=== PATIENT | female | born 1965 | race Caucasian/White ===

== ENCOUNTER → 2016-11-10 | Outpatient (CLI) | payer OTHER ==
[~2016-11-10] MED LIST: LIDOCAINE 1% MDV 20ML VIAL As Ordered ONE
--- NOTE | 2016-11-10 13:38 | REP ---
Specimen radiography: Left breast. History: Patient status post stereotactic needle biopsy left breast for microcalcific cluster. Comparison mammography October 17, 2016. Findings: Specimen radiograph demonstrates three to four microcalcifications from the target grouping. Impression: Specimen radiography shows microcalcifications from the target grouping. Signed by Jeffery Patel MD 11/10/2016 03:34 P
--- NOTE | 2016-11-10 14:21 | REP ---
DIGITAL DIAGNOSTIC UNILATERAL LEFT BREAST MAMMOGRAPHY WITH CAD: HISTORY: Marker clip placement. The patient is status post needle biopsy for microcalcific grouping in the left breast medially. Comparison left breast mammography is from 10/17/2016. FINDINGS: Craniocaudal and true ML views of the left breast demonstrate that the marker clip is in good position relative to the targeted microcalcific grouping. The second grouping of microcalcifications seen on recent mammography was not targeted. This still needs to be biopsied. There is a small hematoma superior to the biopsy site in the medial left breast. IMPRESSION: Marker clip is seen in good position at the site of the biopsied microcalcific grouping. The second grouping of microcalcifications identified on recent mammography was not addressed today and still requires stereotactic needle biopsy. Signed by Jeffery Patel MD 11/10/2016 03:35 P
--- NOTE | 2016-11-10 15:24 | REP ---
STEREOTACTIC LEFT BREAST BIOPSY: The procedure was performed under the direct supervision of Dr. Patel. The patient has a history of two groupings of microcalcifications in the left breast seen on a previous mammogram from [facility] performed on 10/17/2016. There are two groups of calcifications one of which is more lateral and inferior. The other is more midline and superior. The calcifications in the more superior position were localized for biopsy. A craniocaudal approach was utilized. The calcifications were localized using stereotactic mammographic guidance. The skin was prepped and draped in a sterile fashion. 1% Xylocaine was used as a local anesthetic. An 8-gauge suction system Mammotome needle was inserted and six core biopsy samples were obtained. A marker clip was placed at the biopsy site. At the very end of the procedure, the patient did have a vasovagal reaction. The patient was aroused quite quickly using an ammonia capsule. The patient did have one episode of vomiting. The patient came around quite quickly. Because of the vasovagal reaction, the second set of calcifications were not able to be targeted for biopsy. After the appropriate amount of monitored convalescence, the patient was discharged from the department. Reviewed by DONALD Victor 11/10/2016 04:05 PEdited and Signed by Jeffery Patel MD 11/10/2016 04:24 P
== END ==
LOC: M RADPRO 10:45
PROVIDERS: ATTEND Surgery
DX: R92.0 Mammographic microcalcification found on diagnostic imaging of breast (principal); Z87.891 Personal history of nicotine dependence; Z79.899 Other long term (current) drug therapy

== ENCOUNTER → 2017-07-13 | Outpatient (CLI) | payer OTHER | LOC: M ONCR 08:50 | DX: C50.912 Malignant neoplasm of unspecified site of left female breast (principal) | CPT/HCPCS: G0463 ==

== ENCOUNTER 2017-07-25 13:37 | Outpatient (RCR) | payer OTHER | END 2017-08-12 | LOC: M ONCR 13:37 | DX: C50.512 Malignant neoplasm of lower-outer quadrant of left female breast (principal) | CPT/HCPCS: 77300 ==

== ENCOUNTER → 2017-07-25 | Outpatient (CLI) | payer OTHER ==
[2017-07-25 12:13] LABS: HEMATOCRIT 39.7 % (36.0-47.0); HEMOGLOBIN 13.1 g/dl (12.0-16.0); MEAN CORPUSCULAR HEMOGLOBIN 29.2 pg (27.0-33.0); MEAN CORPUSCULAR VOLUME 88.4 fl (80.0-96.0); PLATELET COUNT, AUTOMATED 291 10^3/uL (150-450); RED BLOOD COUNT 4.49 10^6/uL (4.00-5.40); RED CELL DISTRIBUTION WIDTH 12.1 % (11.5-14.5); WHITE BLOOD COUNT 6.4 10^3/uL (4.0-10.0)
== END ==
LOC: M RAD 11:07
DX: C50.912 Malignant neoplasm of unspecified site of left female breast (principal)
CPT/HCPCS: 85027

== ENCOUNTER 2017-08-14 10:23 | Outpatient (RCR) | payer OTHER | END 2017-09-11 | LOC: M ONCR 10:23 | DX: C50.512 Malignant neoplasm of lower-outer quadrant of left female breast (principal) | CPT/HCPCS: 77336 ==

== ENCOUNTER → 2017-09-20 | Outpatient (CLI) | payer OTHER | LOC: M ONCR 14:19 | DX: C50.512 Malignant neoplasm of lower-outer quadrant of left female breast (principal) | CPT/HCPCS: G0463 ==

== ENCOUNTER 2018-01-08 09:42 | Day surgery (SDC) | payer OTHER ==
[2018-01-08] MEDS: NS 1,000 ML IV (11:04)
[2018-01-08] MEDS ORDERED: LIDOCAINE 2% INJ 100 MG/5 ML SDV (FOR ANES.) As Ordered (12:00)
[2018-01-08] MEDS ORDERED: PROPOFOL 200 MG/20 ML VIAL As Ordered ×2 (12:00)
== END 2018-01-08 13:28 | disposition home or self-care (01) ==
LOC: M OPP 09:42
DX: Z12.11 Encounter for screening for malignant neoplasm of colon (principal); K64.0 First degree hemorrhoids; K62.1 Rectal polyp; K57.30 Diverticulosis of large intestine without perforation or abscess without bleeding; D12.6 Benign neoplasm of colon, unspecified; Z80.0 Family history of malignant neoplasm of digestive organs; M79.7 Fibromyalgia; Z79.899 Other long term (current) drug therapy; Z85.3 Personal history of malignant neoplasm of breast; Z92.3 Personal history of irradiation; Z90.710 Acquired absence of both cervix and uterus; Z80.41 Family history of malignant neoplasm of ovary
CPT/HCPCS: 45385

== ENCOUNTER → 2018-04-03 | Outpatient (CLI) | payer OTHER | LOC: M ONCR 08:49 | DX: C50.512 Malignant neoplasm of lower-outer quadrant of left female breast (principal) | CPT/HCPCS: G0463 ==

== ENCOUNTER 2018-04-16 07:14 | Day surgery (SDC) | payer OTHER ==
[2018-04-16] MEDS: NS 1,000 ML IV (06:45)
[~2018-04-16 07:14] MED LIST changes: -LIDOCAINE 1% MDV 20ML VIAL As Ordered ONE; +LIDOCAINE 2% INJ 100 MG/5 ML SDV (FOR ANES.) As Ordered; +PROPOFOL 200 MG/20 ML VIAL As Ordered
[2018-04-16] MEDS ORDERED: PROPOFOL 200 MG/20 ML VIAL As Ordered (08:48)
== END 2018-04-16 09:27 | disposition home or self-care (01) ==
LOC: M OPP 07:14
DX: Z86.010 Personal history of colon polyps (principal); K64.0 First degree hemorrhoids; K62.1 Rectal polyp
CPT/HCPCS: 45380

== ENCOUNTER → 2018-04-23 | Outpatient (REF) | payer OTHER | LOC: M LAB REF 09:02 | DX: D10.39 Benign neoplasm of other parts of mouth (principal) ==

== ENCOUNTER → 2018-10-03 | Outpatient (CLI) | payer OTHER ==
[~2018-10-03] MED LIST changes: +AMBI5TAB PO; +ANAS1TAB2 PO; -LIDOCAINE 2% INJ 100 MG/5 ML SDV (FOR ANES.) As Ordered; +MELA10CA PO; +MOTR200T44 PB; +OYST500T91 PO; -PROPOFOL 200 MG/20 ML VIAL As Ordered
--- NOTE | 2018-10-08 08:24 | RADONC ---
RADIATION ONCOLOGY FOLLOWUP NOTE DATE OF SERVICE: 10/03/2018 CHART NUMBER: [id number]. DIAGNOSIS: Left breast cancer. STAGE: IA, [id number], ER positive, MI positive. ECOG PERFORMANCE STATUS : Zero. FOLLOWUP NOTE: Ms. 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 The patient presents today reporting that she is doing quite well with no complaints at this time related to her radiation therapy or disease other than some left chest wall/breast discomfort. REVIEW OF SYSTEMS: The patient's review of systems is positive for some left chest and breast discomfort but is otherwise noncontributory. She denies nausea, vomiting, fevers, chills, night sweats, diplopia, headaches, anxiety or depression, anorexia, weight loss, visual disturbances, chest pain, urinary or bowel difficulties, bone pain, or neurological problems. PHYSICAL EXAMINATION: The patient is a well-developed, well-nourished female in no acute distress. HEENT examination is normocephalic, atraumatic. Extraocular movements are intact. There is no palpable cervical, supraclavicular, infraclavicular, axillary, or inguinal lymphadenopathy present. Lungs are clear to auscultation and percussion. Heart has a regular rate and rhythm. Abdomen is benign with no hepatosplenomegaly, masses, or tenderness. Breast examination reveals no masses or discharge bilaterally. Skeletal examination reveals no tenderness to pressure or percussion of the bony skeleton. Extremities reveal no clubbing, cyanosis, or edema. Neurologic examination is grossly intact, as is the remainder of the physical examination. ASSESSMENT The patient is clinically JESSICA at this time and is being followed closely by her other physicians. She is scheduled to see Rajwinder Olivas in November, and she is scheduled to see her medical oncologist, Dr. Fabian Jason, on Monday. Considering her close followup and management by her other physicians, I have discharged her from my followup except on a p.r.n. basis. 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 It should not be related to any local recurrence or long-term effects. cc: Fabian Jason MD [facility] Rajwinder Olivas MD [facility]
== END ==
LOC: M ONCR 08:55
PROVIDERS: ATTEND Radiology Radiation Oncology
DX: Z85.3 Personal history of malignant neoplasm of breast (principal); Z92.3 Personal history of irradiation

== ENCOUNTER 2020-08-31 11:32 | Day surgery (SDC) | payer OTHER ==
[~2020-08-31] VITALS: Ht 170.2 cm; Wt 76.2 kg
[~2020-08-31 11:32] MED LIST changes: +ACET325T43 PO; +CALC600T60 PO; +FLUO40CA PO; +NAPR500T6 PO; +NS 1,000 ML IV ONE; +OYST500T10 PO; +[UNRECOGNIZED DRUG - CODE] DT
[2020-08-31] MEDS ORDERED: LIDOCAINE 2% 100MG/5ML SDV (FOR ANES.) As Ordered ONE (13:14)
[2020-08-31] MEDS ORDERED: propofoL 200 MG/20 ML VIAL As Ordered ONE (13:14)
--- NOTE | 2020-08-31 13:41 | ROOR ---
Patient Name: Lilia Keller Procedure Date: 08/31/2020 1:14 PM Date of : 1965 Age: 55 Room: [facility] Gender: Female Note Status: Finalized Procedure: Total Colonoscopy to Cecum + Biopsy Polypectomy Indications: High risk colon cancer surveillance: Personal history of colonic polyps Providers: Aureliano Shipley MD Referring MD: DEVONTE WHITNEY MD Requesting Provider: Medicines: Monitored Anesthesia Care Complications: No immediate complications. Procedure: Pre-Anesthesia Assessment: - The heart rate, respiratory rate, oxygen saturations, blood pressure, adequacy of pulmonary ventilation, and response to care were monitored throughout the procedure. The Colonoscope was introduced through the anus and advanced to the cecum, identified by appendiceal orifice and ileocecal valve. The colonoscopy was performed without difficulty. The patient tolerated the procedure well. The quality of the bowel preparation was excellent. Findings: The perianal and digital rectal examinations were normal. Non-bleeding internal hemorrhoids were found during retroflexion. The hemorrhoids were small and Grade I (internal hemorrhoids that do not prolapse). Two sessile polyps were found in the distal transverse colon. The polyps were small in size. These polyps were removed with a jumbo cold forceps. Resection and retrieval were complete. The exam was otherwise without abnormality on direct and retroflexion views. A single small-mouthed diverticulum was found in the proximal ascending colon. Impression: - Non-bleeding internal hemorrhoids. - Two small polyps in the distal transverse colon, removed with a jumbo cold forceps. Resected and retrieved. - The examination was otherwise normal on direct and retroflexion views. - Diverticulosis in the proximal ascending colon. - The exam was otherwise normal to the cecum. Recommendation: - Patient has a contact number available for emergencies. The signs and symptoms of potential delayed complications were discussed with the patient. Return to normal activities tomorrow. Written discharge instructions were provided to the patient. - High fiber diet. - Discharge patient to home. - Continue present medications. - Await pathology results. - Telephone GI clinic for pathology results in 1 week. - Repeat colonoscopy in 5 years for surveillance. - Return to referring physician. - The findings and recommendations were discussed with the patient. Procedure Code(s): --- Professional --- 28559, Colonoscopy, flexible; with biopsy, single or multiple Diagnosis Code(s): --- Professional --- Z86.010, Personal history of colonic polyps K64.0, First degree hemorrhoids K63.5, Polyp of colon K57.30, Diverticulosis of large intestine without perforation or abscess without bleeding CPT copyright 2019 [employer] [place] [employer] [employer]. All rights reserved. The codes documented in this report are preliminary and upon inspector machine cut glass review may be revised to meet current compliance requirements. Aureliano Shipley MD Aureliano Shipley MD 08/31/2020 1:41:00 PM Electronically signed by Aureliano Shipley MD Number of Addenda: 0 Note Initiated On: 08/31/2020 1:14 PM Estimated Blood Loss: Estimated blood loss: none.
[2020-08-31 14:15] VITALS: BP 125/65
== END 2020-08-31 14:17 | disposition home or self-care (01) ==
LOC: M OPP 11:32
PROVIDERS: ATTEND Internal Medicine Gastroenterology
DX: Z12.11 Encounter for screening for malignant neoplasm of colon (principal); Z86.010 Personal history of colon polyps; Z80.0 Family history of malignant neoplasm of digestive organs; D12.3 Benign neoplasm of transverse colon; K57.30 Diverticulosis of large intestine without perforation or abscess without bleeding; K64.0 First degree hemorrhoids; M79.7 Fibromyalgia; Z79.899 Other long term (current) drug therapy; Z87.891 Personal history of nicotine dependence; Z85.3 Personal history of malignant neoplasm of breast; Z92.21 Personal history of antineoplastic chemotherapy

== ENCOUNTER 2025-01-06 12:42 | Day surgery (SDC) | payer MEDICARE, OTHER ==
[~2025-01-06] VITALS: Ht 170.2 cm; Wt 76.8 kg
[~2025-01-06 12:42] MED LIST changes: -AMBI5TAB PO; +APAP325T4 PO; +LIDOCAINE 2% 100 MG/5 ML SDV (FOR ANES.) As Ordered ONE; +METF-877 PO; +NAPR-1405 PO; -NAPR500T6 PO; -NS 1,000 ML IV ONE; +ZOLP-532 PO
[2025-01-06 15:05] VITALS: BP 111/57; O2SAT 95
== END 2025-01-06 15:10 | disposition home or self-care (01) ==
LOC: M OPP 12:42
PROVIDERS: ATTEND Internal Medicine Gastroenterology
DX: R12 Heartburn (principal); Z79.84 Long term (current) use of oral hypoglycemic drugs; Z79.899 Other long term (current) drug therapy